=== PATIENT | female | born 1995 | race Two or more races ===

== ENCOUNTER 2017-12-17 10:34 | Emergency (ER) | payer OTHER ==
[2017-12-17 10:54] VITALS: BP 134/78; PULSE 84; TEMP 98.5; BMI 35.4
--- NOTE | 2017-12-17 11:50 | PDOC ---
History of Present Illness - General Chief Complaint: Pain Stated Complaint: LT TOE PAIN - History of Present Illness Initial Comments: 22-year-old female without comorbidities presents for evaluation of 4 days worth of left great toe pain. There was no precipitating traumatic event. 12/17/17 11:47 Past History - Past Medical History Allergies/Adverse Reactions: Allergies Allergy/AdvReac Type Severity Reaction Status Date / Time No Known Allergies Allergy Verified 09/22/16 16:28 Home Medications: Ambulatory Orders NK [No Known Home Medication] 09/22/16 COPD: No Other medical history: DENIES - Immunization History Immunization Up to Date: Yes - Suicide/Smoking/Psychosocial Hx Smoking Status: No Smoking History: Never smoked Have you smoked in the past 12 months: No Number of Cigarettes Smoked Daily: 0 Hx Alcohol Use: No Drug/Substance Use Hx: No Substance Use Type: None Review of Systems - Review of Systems Musculoskeletal: Yes: See HPI All Other Systems: Reviewed and Negative *Physical Exam - Vital Signs Last Vital Signs Temp Pulse Resp BP Pulse Ox 98.5 F 84 18 134/78 100 12/17/17 10:51 12/17/17 10:51 12/17/17 10:51 12/17/17 10:51 12/17/17 10:51 - Physical Exam Comments: Left great toe is mildly erythemic about the medial aspect of the nail border. Full range of motion there is associated tenderness. There is no induration fluctuance or drainage. The toenail is ingrown. 12/17/17 11:47 Medical Decision Making - Medical Decision Making Under aseptic technique 6 mL of 1% lidocaine without epinephrine was used for digital block of the left great toe. This was tolerated well. After anesthesia. Suture scissors were used to split the nail longitudinally and the great toe nail was extracted from the medial border of the nail fold bacitracin ointment and a dry sterile dressing was placed. This was tolerated well and done without complication. The nail matrix was left in place. 12/17/17 11:47 *DC/Admit/Observation/Transfer Diagnosis at time of Disposition: Ingrown left big toenail - Discharge Dispostion Disposition: HOME Condition at time of disposition: Stable Decision to Admit order: No - Referrals Referrals: Dago Mooney MD [Non Staff, Medical] - Kolton Cooper [Non Staff, Medical] - Rodrigue Hussein [Non Staff, Medical] - Maurizio Cook MD [Non Staff, Medical] - Eleno Gorman MD [Non Staff, Medical] - Yovanny Vazquez MD [Non Staff, Medical] - Ashwin Coronel MD [Non Staff, Medical] - Garcia Silva MD [Staff Physician] - - Patient Instructions Printed Discharge Instructions: DI for Ingrown Toenail Removal, DI for Ingrown Toenail Additional Instructions: Please keep the dressing on for the next 48 hours. After 48 hours you may remove the dressing and leave the area open to air after is wash with soap and water. Please leave the area uncovered do not wear any socks or closed shoes. Follow-up with podiatry in 2 days for further evaluation and treatment options. Return to the emergency room should symptoms worsen or go unresolved. He may take Tylenol and Motrin for pain as directed. - Post Discharge Activity
== END 2017-12-17 12:17 | disposition home or self-care (01) ==
LOC: JERFT 10:34 → MERGE 10:34 → JERFT 12:17
PROC: 0HBRXZZ Excision of Toe Nail, External Approach (ICD-10-PCS; principal; 2017-12-17)
DX: L60.0 Ingrowing nail (principal)
CPT/HCPCS: 11765; 99281-25

== ENCOUNTER 2018-12-31 23:26 | Emergency (ER) | payer OTHER | END 2019-01-01 02:00 | disposition home or self-care (01) | LOC: JER 23:26 ==

== ENCOUNTER 2022-07-04 04:26 | Day surgery (SDC) | payer OTHER ==
[2022-07-03 11:36] VITALS: BMI 33.6
[2022-07-04 15:04] VITALS: BP 112/84; PULSE 86; RESP 18; TEMP 98
== END 2022-07-04 14:55 | disposition home or self-care (01) ==
LOC: JASU-ENDO 04:26
PROVIDERS: ATTEND Internal Medicine Gastroenterology
PROC: 0DB78ZX Excision of Stomach, Pylorus, Via Natural or Artificial Opening Endoscopic, Diagnostic (ICD-10-PCS; 2022-07-04)
PROC: 0DB68ZX Excision of Stomach, Via Natural or Artificial Opening Endoscopic, Diagnostic (ICD-10-PCS; principal; 2022-07-04 11:45)
DX: K29.50 Unspecified chronic gastritis without bleeding (principal)
CPT/HCPCS: 81025; 88305-TC; 88342-TC

== ENCOUNTER 2022-07-18 04:28 | Day surgery (SDC) | payer OTHER ==
[2022-07-13 15:32] VITALS: BMI 34.5
[2022-07-18] MEDS ORDERED: KETAMINE HCL 500 MG/10 ML VIAL ONE (07:01)
[2022-07-18 08:20] VITALS: TEMP 98
[2022-07-18 08:57] VITALS: BP 119/77; PULSE 74; RESP 19
== END 2022-07-18 10:00 | disposition home or self-care (01) ==
LOC: JASU-ENDO 04:28
PROVIDERS: ATTEND Internal Medicine Gastroenterology
PROC: 0DJD8ZZ Inspection of Lower Intestinal Tract, Via Natural or Artificial Opening Endoscopic (ICD-10-PCS; principal; 2022-07-18 08:00)
DX: K57.30 Diverticulosis of large intestine without perforation or abscess without bleeding (principal); K64.8 Other hemorrhoids
CPT/HCPCS: 81025